=== PATIENT | female | born 1955 | race Caucasian/White ===

== ENCOUNTER 2018-05-21 12:38 | Inpatient (IN) | payer SELFPAY ==
[~2018-05-21] VITALS: Ht 165.1 cm; Wt 102.9 kg
[2018-05-21 13:41] LABS: Basophils # (auto) 0 uL; Eosinophils # (auto) 0.1 uL; Eosinophils % (auto) 1.7 % (0.0-7.0); Lymphocytes # (auto) 0.9 uL; Mean Corpuscular Volume 81.8 fL (80.0-100.0); Monocytes # (auto) 0.4 uL; Neutrophils % (auto) 78.9 % (37.0-80.0); Nucleated Red Blood Cells % 0.1 %
[2018-05-21 13:44] LABS: Basophils % (auto) 0.6 % (0.0-2.0); Hematocrit 37.6 % (36.0-46.0); Hemoglobin 11.8 g/dL (12.2-16.2); Lymphocytes % (auto) 12.6 % (10.0-50.0); Mean Corpuscular Hemoglobin 25.6 pg (28.0-32.0); Mean Corpuscular Hgb Conc. 31.3 g/dL (32.0-36.0); Monocytes % (auto) 6.2 % (0.0-12.0); Neutrophils # (auto) 5.4 uL; Platelet Count (auto) 321 10^3/uL (140-450); Red Cell Distribution Width 15.7 % (11.8-14.3); White Blood Cell 6.8 10^3/uL (4.4-10.8)
[2018-05-21 13:58] LABS: Albumin 3.1 g/dL (3.4-5.0); Anion Gap 6 (5-15); Blood Urea Nitrogen 9 mg/dL (7-18); Calcium 8.6 mg/dL (8.5-10.1); Carbon Dioxide 25 mmol/L (21-32); Chloride 109 mmol/L (98-107); Glucose 104 mg/dL (74-106); Magnesium 2.3 mg/dL (1.6-2.6); Potassium 3.3 mmol/L (3.5-5.1); Sodium 140 mmol/L (136-145)
[2018-05-21 14:05] LABS: Alanine Aminotransferase 25 U/L (13-56); Alkaline Phosphatase 126 U/L (45-117); Aspartate Aminotransferase 22 U/L (15-37); BUN/Creatinine Ratio 14.8; Bilirubin, Total 0.4 mg/dL (0.2-1.0); GFR African American 127 mL/min; GFR Non-African American 105 mL/min; Total Protein 6.8 g/dL (6.4-8.2)
[2018-05-21] MEDS ORDERED: NITROGLYCERIN 0.4 MG SL TAB SL PRN (15:30)
[2018-05-21] MEDS ORDERED: MORPHINE SULF INJ 2 MG/ML SYRINGE 1ML IV PRN (15:30)
[2018-05-21 16:11] LABS: INR 0.96 (0.9-1.15); Partial Thromboplastin Time 27.8 sec (23.78-33.04); Prothrombin Time 10.3 sec (9.27-12.13)
[2018-05-21] MEDS ORDERED: HYDROcodone-ACET 10/325MG TAB PO ONE (16:30)
[2018-05-21] MEDS: metroNIDAZOLE 500MG/100ML 100 ML IV SCH (17:11)
[2018-05-21] MEDS: MORPHINE SULF INJ 2 MG/ML SYRINGE 1ML IV PRN (17:12)
[2018-05-21] MEDS: ONDANSETRON HCL 4 MG/2 ML VIAL IV PRN ×2 (17:12→22:35)
[2018-05-21] MEDS: D5W/SOD CHL 0.45%/KCL 40MEQ 1,000 ML IV SCH ×2 (19:20→23:30)
[2018-05-21] MEDS ORDERED: GASTROGRAFIN 120 ML SOL ONE (19:59)
[2018-05-21 22:00] VITALS: BP 132/64
--- NOTE | 2018-05-21 22:13 | NUR ---
Telemetry admit from ER [facility] admitted to Telemetry unit after SBAR received. Patient oriented to OTTO ARZATE RN primary RN, unit, room, bed, and unit policies regarding patient care and visiting hours. Patient now on continuous telemetry monitoring, tele box # 23 and telemetry reading on arrival to unit is . Patient placed on bedside oxygen, weighed by bedscale and encouraged to call if they need something. All questions and concerns addressed, patient verbalized understanding. Note:
[2018-05-21] MEDS ORDERED: TRAM50TA2 PO (22:35)
[2018-05-22] MEDS: metroNIDAZOLE 500MG/100ML 100 ML IV SCH ×5 (00:09→23:27)
[2018-05-22] MEDS: MORPHINE SULF INJ 2 MG/ML SYRINGE 1ML IV PRN ×3 (01:34→13:27)
[2018-05-22] MEDS: ONDANSETRON HCL 4 MG/2 ML VIAL IV PRN (04:04)
[2018-05-22 05:00] VITALS: BP 126/74
[2018-05-22] MEDS: D5W/SOD CHL 0.45%/KCL 40MEQ 1,000 ML IV SCH ×4 (05:34→23:30)
[2018-05-22 06:41] LABS: Basophils # (auto) 0 uL; Basophils % (auto) 0.6 % (0.0-2.0); Lymphocytes # (auto) 1.1 uL; Monocytes # (auto) 0.7 uL; Red Cell Distribution Width 15.6 % (11.8-14.3)
[2018-05-22 06:45] LABS: Eosinophils # (auto) 0.2 uL; Eosinophils % (auto) 2.3 % (0.0-7.0); Hematocrit 33.1 % (36.0-46.0); Hemoglobin 10.7 g/dL (12.2-16.2); Mean Corpuscular Hemoglobin 25.9 pg (28.0-32.0); Mean Corpuscular Hgb Conc. 32.4 g/dL (32.0-36.0); Monocytes % (auto) 10.5 % (0.0-12.0); Neutrophils # (auto) 4.6 uL; Neutrophils % (auto) 69.6 % (37.0-80.0); Platelet Count (auto) 311 10^3/uL (140-450); Red Blood Cells 4.13 10^6/uL (4.0-5.20); White Blood Cell 6.7 10^3/uL (4.4-10.8)
[2018-05-22 07:00] LABS: Albumin 2.7 g/dL (3.4-5.0); Potassium 3.5 mmol/L (3.5-5.1)
[2018-05-22 07:04] LABS: Bilirubin, Total 0.4 mg/dL (0.2-1.0); Phosphorus 2.7 mg/dL (2.5-4.90)
[2018-05-22 09:00] VITALS: BP 124/57
--- NOTE | 2018-05-22 10:06 | NUR ---
URINE SAMPLE SENT TO LAB
[2018-05-22 10:25] LABS: Urine Bacteria NONE SEEN /hpf (None Seen); Urine Blood Negative /uL (Negative); Urine Mucus FEW (None Seen); Urine Specific Gravity 1.016 (1.001-1.035); Urine WBC 3 /hpf (0 - 5)
--- NOTE | 2018-05-22 11:34 | NUR ---
DR. CORTÉS AT BEDSIDE HE SAID TO FOLLOW UP SMALL BOWEL SERIES RESULT AND NOTIFY DR. LOPEZ ONCE RESULT IS BACK.
[2018-05-22] MEDS ORDERED: PANTOPRAZOLE 40 MG/10 ML VIAL IV ONE (11:45)
--- NOTE | 2018-05-22 11:56 | NUR ---
SMALL BOWEL SERIES RESULT CALLED RADIOLOGY, SPOKE TO RADHA, HE SAID HE WILL FOLLOW UP THE READING OF SMALL BOWEL SERIES.
--- NOTE | 2018-05-22 12:47 | NUR ---
Nutrition Assessment/consult Notes please see activated link for complete assessment Est. Needs based on AdBW (79 kg): 5437-0362 kcal (20-23 kcal/kgAdBW), 79-86 gms pro (1.0-1.1 gms/kgAdBW). Will continue to monitor pertinent labs and reassess nutrient need prn Addendum: 05/22/18 at [address] Amended: Links added.
[2018-05-22 13:00] VITALS: BP 121/69
--- NOTE | 2018-05-22 13:32 | NUR ---
CALLED RADIOLOGY, SECOND FOLLOW UP FOR SMALL BOWEL SERIES RESULT, SPOKE WITH MAIRA, SHE SAID SHE WILL FOLLOW UP THE RESULT.
--- NOTE | 2018-05-22 14:15 | NUR ---
PT SEEN BY DR. LOPEZ PER DR. LOPEZ NO INTERVENTION AT THIS TIME, PT CAN START WITH FULL LIQUID DIET.
--- NOTE | 2018-05-22 15:06 | NUR ---
SPOKE WITH DR. CORTSÉ MADE AWARE PT SEEN BY DR. LOPEZ AND NO INTERVENTION AT THIS TIME, AWARE OF THE PELVIC ULTRASOUND RESULT, HE ORDERED OBGYN CONSULT FOR UTERINE FIBROID. PER DR. CORTÉS HE WILL DISCHARGE THE PT TOMORROW.
--- NOTE | 2018-05-22 15:44 | NUR ---
DR. CORTÉS MADE AWARE PT IS REQUESTING MEDICATION FOR HEADACHE OTHER THAN MORPHINE. HE ORDERED NORCO 5/325 PO Q6HRS PRN. HE ORDERED TO STOP MORPHINE.
--- NOTE | 2018-05-22 16:07 | NUR ---
HAIR CONSULT PT SEEN BY DR. ALVAREZ, SHE SAID NO INTERVENTION AT THIS TIME, PT WILL FOLLOW UP OUT PATIENT.
--- NOTE | 2018-05-22 16:21 | NUR ---
assessment Per consult No PCP. Patient has no insurance. Patient to be assessed by Jenn norris [facility] for [facility]. Patient will then be assigned PCP. Addendum: 05/22/18 at 1622 by Gisel Cramer Amended: Links added.
[2018-05-22] MEDS: HYDROcodone-ACET 5/325MG TAB PO PRN (16:36)
[2018-05-22 16:43] VITALS: BP 135/72
--- NOTE | 2018-05-22 19:52 | NUR ---
PATIENT C/O 06/28 HEADACHE REQUESTING PAIN MEDICATION. INFORMED PATIENT HAS NORCO ORDERED Q 6HRS PRN. WILL CALL HOSPITALIST FOR TYLENOL PRN. HOSPITALIST PAGED AWAITING CALL BACK.
[2018-05-22 21:43] VITALS: BP 128/70
[2018-05-23 05:05] VITALS: BP 113/58
[2018-05-23] MEDS: HYDROcodone-ACET 5/325MG TAB PO PRN (05:23)
[2018-05-23] MEDS: metroNIDAZOLE 500MG/100ML 100 ML IV SCH ×2 (05:23→11:29)
[2018-05-23 08:10] VITALS: BP 122/55
[2018-05-23] MEDS: D5W/SOD CHL 0.45%/KCL 40MEQ 1,000 ML IV SCH (09:31)
[2018-05-23] MEDS ORDERED: PANTOPRAZOLE 40 MG/10 ML VIAL IV SCH (10:00)
--- NOTE | 2018-05-23 11:25 | NUR ---
PT SEEN BY DR. CORTÉS HE SAID PT CAN GO HOME , PT IS CLEARED BY DR. LOPEZ AND DR. ALVAREZ. HE SAID TO GIVE METRONIDAZOLE SCHEDULED AT 1200 AND DISCHARGE AFTER
[2018-05-23 12:31] VITALS: BP 148/103
[2018-05-23 13:13] VITALS: BP 122/55
--- NOTE | 2018-05-23 13:21 | NUR ---
PT STATED SHE WILL FOLLOW UP WITH HER PRIMARY DOCTOR IN [place].
--- NOTE | 2018-05-23 15:15 | NUR ---
Discharge instructions given as ordered. Encourage to follow up with her pcp DR. OCAMPO IN [place], INSTRUCTED TO FOLLOW UP WITH DOCTOR LOPEZ AND DR. ALVAREZ, TELEPHONE NUMBER AND ADDRESS PROVIDED TO THE PT. All questions and concerns addressed. Patient verbalized understanding. Medication reconciliation form completed and copy given to patient. IV removed with catheter intact, pressure dressing applied. Telemetry unit returned to ICU. Patient taken to vehicle via wheelchair with all personal belongings, accompanied by staff and family member. No distress noted at time of departure.
== END 2018-05-23 15:15 | disposition home or self-care (01) | DRG 394 ==
LOC: ER 12:50 → TELE 15:28 → TELE-WESTW 21:57
PROVIDERS: ADMIT Nurse Practitioner Acute Care; ATTEND Family Medicine
DX: K42.0 Umbilical hernia with obstruction, without gangrene (principal); E44.1 Mild protein-calorie malnutrition; Z98.84 Bariatric surgery status; D64.9 Anemia, unspecified; E87.6 Hypokalemia; Z68.37 Body mass index [BMI] 37.0-37.9, adult; E66.01 Morbid (severe) obesity due to excess calories; I10 Essential (primary) hypertension; I25.10 Atherosclerotic heart disease of native coronary artery without angina pectoris; Z90.49 Acquired absence of other specified parts of digestive tract; D25.9 Leiomyoma of uterus, unspecified; Z83.3 Family history of diabetes mellitus
CPT/HCPCS: 36415; 74176; 74250; 76856; 80053; 80061; 81001; 83036; 83690; 83735; 84100; 84443; 84484; 85025; 85610; 85730; 86850; 86900; 86901; 93306; 96374; A6257; C9113; G0378; J2405; J3490

== ENCOUNTER 2019-08-14 21:33 | Inpatient (IN) | payer MEDICARE ==
[~2019-08-14] VITALS: Ht 162.6 cm; Wt 94.5 kg
[~2019-08-14 21:33] MED LIST: TRAM50TA2 PO
[2019-08-14 23:36] LABS: Basophils # (auto) 0 10 ^3/uL (0-0.2); Basophils % (auto) 0.9 % (0.0-2.0); Eosinophils # (auto) 0 10 ^3/uL (0-0.8); Eosinophils % (auto) 0.8 % (0.0-7.0); Hematocrit 31.6 % (36.0-46.0); Hemoglobin 9.7 g/dL (12.2-16.2); Lymphocytes # (auto) 1.1 10 ^3/uL (0.4-5.4); Lymphocytes % (auto) 24.7 % (10.0-50.0); Mean Corpuscular Hemoglobin 22.5 pg (28.0-32.0); Mean Corpuscular Hgb Conc. 30.6 g/dL (32.0-36.0); Mean Corpuscular Volume 73.5 fL (80.0-100.0); Monocytes # (auto) 0.6 10 ^3/uL (0-1.3); Monocytes % (auto) 12.1 % (0.0-12.0); Neutrophils # (auto) 2.8 10 ^3/uL (1.6-8.6); Neutrophils % (auto) 61.5 % (37.0-80.0); Platelet Count (auto) 275 10^3/uL (140-450); Red Cell Distribution Width 17.7 % (11.8-14.3); White Blood Cell 4.6 10^3/uL (4.4-10.8)
[2019-08-14 23:59] LABS: Albumin 2.9 g/dL (3.4-5.0); BUN/Creatinine Ratio 18.3; Calcium 7.6 mg/dL (8.5-10.1); Magnesium 2.2 mg/dL (1.6-2.6); Potassium 3.5 mmol/L (3.5-5.1)
[2019-08-15 00:01] LABS: Bilirubin, Total 0.3 mg/dL (0.2-1.0); Total Protein 6.6 g/dL (6.4-8.2)
[2019-08-15] MEDS ORDERED: AZITHROMYCIN 500MG/ 250ML 250 ML IV ONE (01:45)
[2019-08-15] MEDS ORDERED: cefTRIAXone 1GM/50ML D5W 50 ML IV ONE (01:45)
[2019-08-15 09:00] LABS: Urine Bacteria NONE SEEN /hpf (None Seen); Urine Blood Negative /uL (Negative); Urine Specific Gravity 1.007 (1.001-1.035); Urine WBC <1 /hpf (0 - 5)
[2019-08-15] MEDS ORDERED: SODIUM CHLORIDE 0.9% 1,000 ML IV SCH (10:44)
[2019-08-15] MEDS ORDERED: MORPHINE SULF INJ 2 MG/ML SYRINGE 1ML IV PRN (10:45)
[2019-08-15] MEDS ORDERED: ACETAMINOPHEN 500 MG TAB PO PRN (10:45)
[2019-08-15] MEDS ORDERED: PROMETHAZINE HCL 25 MG/ML 1ML IV PRN (10:45)
[2019-08-15] MEDS ORDERED: NITROGLYCERIN 0.4 MG SL TAB SL PRN (10:45)
[2019-08-15] MEDS: ENOXAPARIN SOD 40 MG/0.4 ML SYRINGE SC SCH ×2 (11:52→22:56)
[2019-08-15] MEDS: traMADol HCL 50 MG TAB PO PRN ×2 (11:53→18:57)
[2019-08-15 13:00] VITALS: BP 128/94
[2019-08-15] MEDS: ALBUTEROL SULF HFA 90MCG INH 200DOSE IN SCH ×2 (14:29→22:55)
--- NOTE | 2019-08-15 14:30 | NUR ---
Respiratory note: PT IS AWAKE, AND ALERT. NO RESPIRATORY DISTRESS NOTED. SPO2 99% ON 2L NC, HR 74, RR 10, BS CLEAR/DIMINISHED BILATERALLY. 1 PUFF ALBUTEROL (90MCG) GIVEN VIA MDI WITH CHAMBER. NO ADVERSE EFFECTS NOTED. WILL CONTINUE TO MONITOR PT. CHARTING COMPLETE FROM OUTSIDE OF PT ROOM.
[2019-08-15 22:15] VITALS: BP 130/56
--- NOTE | 2019-08-15 22:15 | NUR ---
Telemetry admit from [facility] admitted to Telemetry unit. Patient oriented to ASHISH SON, RN primary RN, unit, room, bed, and unit policies regarding patient care and visiting hours. Patient now on continuous telemetry monitoring, tele box #7 and telemetry reading on arrival to unit is 62. Patient placed on bedside oxygen 2L via nasal cannula, weighed by bedscale and encouraged to call if they need something. All questions and concerns addressed, patient verbalized understanding.
[2019-08-15 22:20] VITALS: BP 130/56
--- NOTE | 2019-08-15 22:55 | NUR ---
Respiratory note: ALBUTEROL MDI ADMINISTERED BY RN.
[2019-08-16] MEDS ORDERED: ASPI-543 PO (04:02)
[2019-08-16 05:00] VITALS: BP 136/66
[2019-08-16 05:11] LABS: Basophils # (auto) 0 10 ^3/uL (0-0.2); Eosinophils # (auto) 0.1 10 ^3/uL (0-0.8); Hemoglobin 9.2 g/dL (12.2-16.2); Lymphocytes # (auto) 1.3 10 ^3/uL (0.4-5.4); Platelet Count (auto) 227 10^3/uL (140-450); White Blood Cell 2.7 10^3/uL (4.4-10.8)
[2019-08-16 05:13] LABS: Basophils % (auto) 0.6 % (0.0-2.0); Eosinophils % (auto) 2.4 % (0.0-7.0); Hematocrit 29.4 % (36.0-46.0); Lymphocytes % (auto) 50.1 % (10.0-50.0); Mean Corpuscular Hemoglobin 22.8 pg (28.0-32.0); Mean Corpuscular Hgb Conc. 31.2 g/dL (32.0-36.0); Monocytes # (auto) 0.4 10 ^3/uL (0-1.3); Monocytes % (auto) 13.2 % (0.0-12.0); Neutrophils # (auto) 0.9 10 ^3/uL (1.6-8.6); Neutrophils % (auto) 33.7 % (37.0-80.0); Nucleated Red Blood Cells % 0.3 %; Red Blood Cells 4.04 10^6/uL (4.0-5.20); Red Cell Distribution Width 17.2 % (11.8-14.3)
[2019-08-16 05:54] LABS: Albumin 2.5 g/dL (3.4-5.0); BUN/Creatinine Ratio 21.7; Calcium 7.6 mg/dL (8.5-10.1); Potassium 3.3 mmol/L (3.5-5.1)
[2019-08-16 05:56] LABS: Bilirubin, Total 0.2 mg/dL (0.2-1.0); Total Protein 5.8 g/dL (6.4-8.2)
[2019-08-16] MEDS: ALBUTEROL SULF HFA 90MCG INH 200DOSE IN SCH ×3 (06:44→21:01)
--- NOTE | 2019-08-16 06:44 | NUR ---
Respiratory note: PT RESTING COMFORTABLY. NO RESPIRATORY DISTRESS NOTED. SPO2 96% ON 1 L NC, HR 65, RR 16, BS CLEAR/DIMINISHED BILATERALLY. 1 PUFF ALBUTEROL (90MCG) GIVEN BY RN VIA MDI WITH CHAMBER, WITH NO ADVERSE EFFECTS NOTED. PT INFORMED TO PUSH CALL BUTTON IF INCREASED WOB, SOB, OR WHEEZING OCCURS. NO FURTHER RESPIRATORY INTERVENTIONS INDICATED. CHARTING COMPLETE FROM OUTSIDE OF PT ROOM.
[2019-08-16] MEDS: traMADol HCL 50 MG TAB PO PRN ×2 (06:59→18:39)
[2019-08-16 09:00] VITALS: BP 122/77
[2019-08-16] MEDS: cefTRIAXone 1GM/50ML D5W 50 ML IV SCH (09:45)
[2019-08-16] MEDS: ASCORBIC ACID 1,000 MG TAB PO SCH (09:47)
[2019-08-16] MEDS: AZITHROMYCIN 500MG/ 250ML 250 ML IV SCH (09:50)
[2019-08-16] MEDS: ENOXAPARIN SOD 40 MG/0.4 ML SYRINGE SC SCH (09:56)
[2019-08-16] MEDS: CHOLECALCIFEROL (VITD3) 1,000UNIT=25mCg TAB PO SCH (09:57)
[2019-08-16] MEDS ORDERED: PNEUMOCOCCAL VACC POLYS 25 MCG/0.5 ML VIAL IM ONE (10:00)
[2019-08-16 13:00] VITALS: BP 117/77
[2019-08-16] MEDS: ACETAMINOPHEN 500 MG TAB PO PRN (13:20)
[2019-08-16] MEDS: DexAMETHasone SOD PHOS 4 MG/1ML SDV INJ IV SCH ×2 (13:21→21:01)
--- NOTE | 2019-08-16 13:34 | NUR ---
Respiratory note: 1 PUFF ALBUTEROL (90MCG) GIVEN BY RN VIA MDI WITH CHAMBER, WITH NO ADVERSE EFFECTS NOTED. NO FURTHER RESPIRATORY INTERVENTIONS INDICATED. CHARTING COMPLETE FROM OUTSIDE OF PT ROOM.
[2019-08-16] MEDS ORDERED: FUROSEMIDE 20 MG/2 ML VIAL IV ONE (14:15)
[2019-08-16] MEDS ORDERED: POTASSIUM EFFERVESENT TAB 25 MEQ PO ONE (14:30)
--- NOTE | 2019-08-16 14:35 | NUR ---
Nutrition Consult/assessment Notes Please see attached link for complete assessment Est Energy needs ABW 73 [id number] kcals (20-23kcal/kgBW), Est Protein needs: 73-80 gms/day (1.0-1.0 gm/kgABW). Will continue to monitor and reassess prn. Addendum: 08/16/19 at [address] Amended: Links added.
[2019-08-16 17:00] VITALS: BP 127/75
--- NOTE | 2019-08-16 18:00 | NUR ---
PATIENT COMPLAINS OF CRAMPING IN LEG REQUESTED BANANA FROM DIETARY.
--- NOTE | 2019-08-16 18:58 | NUR ---
LEG CRAMP NO LONGER CRAMPING IN LEG RESTING IN BED.
--- NOTE | 2019-08-16 19:24 | NUR ---
Opening Shift Note Received report and assumed care of patient. Patient is awake and alert. No signs or symptoms of distress noted, patient currently denies pain. Instructed patient on plan of care and to call for assistance as needed. Will continue to monitor.
[2019-08-16 22:00] VITALS: BP 125/70
[2019-08-17 05:00] VITALS: BP 145/69
--- NOTE | 2019-08-17 05:30 | NUR ---
IV removal/insertion 20g IV to the Right forearm infiltrated. Discontinued IV clean technique, catheter tip fully intact. Pressure dressing applied to site. NOTE: Inserted 22g IV to the Left forearm. Patient tolerated well. Addendum: 08/18/19 at 0917 by ASHISH SON RN RN Correct date 08/18/19
[2019-08-17] MEDS: ALBUTEROL SULF HFA 90MCG INH 200DOSE IN SCH ×3 (06:23→22:23)
[2019-08-17] MEDS: ACETAMINOPHEN 500 MG TAB PO PRN (06:34)
--- NOTE | 2019-08-17 07:22 | NUR ---
Opening Shift Note Assumed care of patient, awake and alert. No S/S of distress/SOB or pain. Instructed on POC and to call for assist PRN, will continue to monitor for changes Q1hr and PRN.
[2019-08-17] MEDS: DexAMETHasone SOD PHOS 4 MG/1ML SDV INJ IV SCH (08:03)
[2019-08-17] MEDS: cefTRIAXone 1GM/50ML D5W 50 ML IV SCH (08:04)
[2019-08-17] MEDS: FUROSEMIDE 20 MG/2 ML VIAL IV SCH (08:04)
[2019-08-17] MEDS: ASCORBIC ACID 1,000 MG TAB PO SCH (08:05)
[2019-08-17] MEDS: POTASSIUM EFFERVESENT TAB 25 MEQ PO SCH (08:05)
[2019-08-17] MEDS: CHOLECALCIFEROL (VITD3) 1,000UNIT=25mCg TAB PO SCH (08:06)
[2019-08-17] MEDS: LORazepam 2MG/ML-1ML VIAL IV PRN (08:06)
[2019-08-17] MEDS: AZITHROMYCIN 500MG/ 250ML 250 ML IV SCH (08:06)
[2019-08-17 08:47] VITALS: BP 163/74
[2019-08-17] MEDS ORDERED: ENOXAPARIN SOD 40 MG/0.4 ML SYRINGE SC SCH (10:00)
[2019-08-17] MEDS ORDERED: LORazepam 2MG/ML-1ML VIAL IM ONE (10:45)
[2019-08-17] MEDS ORDERED: LORazepam 2MG/ML-1ML VIAL IV ONE (11:00)
[2019-08-17] MEDS ORDERED: ENOXAPARIN SOD 40 MG/0.4 ML SYRINGE SC ONE (12:15)
[2019-08-17 12:47] VITALS: BP 152/97
[2019-08-17] MEDS: traMADol HCL 50 MG TAB PO PRN ×2 (12:53→14:10)
--- NOTE | 2019-08-17 13:01 | NUR ---
Respiratory note: MDI GIVEN BY RN. PT TOLERATED WELL.
[2019-08-17 16:47] VITALS: BP 149/73
--- NOTE | 2019-08-17 19:36 | NUR ---
Opening Shift Note Received report and assumed care of patient. Patient is awake and alert. No signs or symptoms of distress noted. Instructed patient on plan of care and to call for assistance as needed. Will continue to monitor.
[2019-08-17] MEDS ORDERED: TEMAZEPAM 15 MG CAP PO PRN (21:00)
[2019-08-17] MEDS ORDERED: ENOXAPARIN SOD 100 MG/1 ML SYRINGE SC SCH (22:00)
[2019-08-18 05:00] VITALS: BP 147/86
[2019-08-18 05:42] LABS: Basophils # (auto) 0 10 ^3/uL (0-0.2); Basophils % (auto) 0.5 % (0.0-2.0); Eosinophils # (auto) 0 10 ^3/uL (0-0.8); Hemoglobin 9.8 g/dL (12.2-16.2); Lymphocytes # (auto) 1.3 10 ^3/uL (0.4-5.4); White Blood Cell 3.8 10^3/uL (4.4-10.8)
[2019-08-18 05:44] LABS: Eosinophils % (auto) 0.8 % (0.0-7.0); Hematocrit 31.4 % (36.0-46.0); Lymphocytes % (auto) 34.4 % (10.0-50.0); Mean Corpuscular Hemoglobin 22.5 pg (28.0-32.0); Mean Corpuscular Hgb Conc. 31.2 g/dL (32.0-36.0); Mean Corpuscular Volume 72.3 fL (80.0-100.0); Monocytes # (auto) 0.4 10 ^3/uL (0-1.3); Monocytes % (auto) 11.7 % (0.0-12.0); Neutrophils % (auto) 52.6 % (37.0-80.0); Nucleated Red Blood Cells % 0.2 %; Platelet Count (auto) 253 10^3/uL (140-450); Red Blood Cells 4.35 10^6/uL (4.0-5.20)
[2019-08-18 06:13] LABS: BUN/Creatinine Ratio 16.7; Calcium 8.6 mg/dL (8.5-10.1); Potassium 3.3 mmol/L (3.5-5.1)
[2019-08-18] MEDS: ALBUTEROL SULF HFA 90MCG INH 200DOSE IN SCH ×2 (06:48→14:52)
[2019-08-18] MEDS: ENOXAPARIN SOD 40 MG/0.4 ML SYRINGE SC SCH ×2 (06:49→10:03)
[2019-08-18] MEDS: ACETAMINOPHEN 500 MG TAB PO PRN (06:54)
[2019-08-18 08:47] VITALS: BP 152/76
[2019-08-18] MEDS: cefTRIAXone 1GM/50ML D5W 50 ML IV SCH (10:02)
[2019-08-18] MEDS: FUROSEMIDE 20 MG/2 ML VIAL IV SCH (10:02)
[2019-08-18] MEDS: POTASSIUM EFFERVESENT TAB 25 MEQ PO SCH (10:03)
[2019-08-18] MEDS: CHOLECALCIFEROL (VITD3) 1,000UNIT=25mCg TAB PO SCH (10:03)
[2019-08-18] MEDS: ASCORBIC ACID 1,000 MG TAB PO SCH (10:03)
[2019-08-18] MEDS: LORazepam 2MG/ML-1ML VIAL IV PRN (10:04)
[2019-08-18] MEDS: AZITHROMYCIN 500MG/ 250ML 250 ML IV SCH (11:42)
[2019-08-18 13:00] VITALS: BP 135/81
[2019-08-18 14:17] VITALS: BP 135/81
--- NOTE | 2019-08-18 15:53 | NUR ---
Discharge instructions given as ordered. Encourage to follow up with PMD as instructed. All questions and concerns addressed. Patient verbalized understanding. Medication reconciliation form completed and copy given to patient. IV removed with catheter intact, pressure dressing applied. Telemetry unit returned to ICU. Patient taken to vehicle via wheelchair with all personal belongings, accompanied by staff and Cornelius. No distress noted at time of departure.
== END 2019-08-18 14:00 | disposition home or self-care (01) | DRG 871 ==
LOC: ER 21:33 → TELE 21:34 → TELE-EAST 08-15 22:31
PROVIDERS: ADMIT Internal Medicine; ATTEND Internal Medicine Nephrology
DX: A41.89 Other specified sepsis (principal); J12.89 Other viral pneumonia; U07.1 COVID-19; E66.9 Obesity, unspecified; Z68.35 Body mass index [BMI] 35.0-35.9, adult; Z83.3 Family history of diabetes mellitus; I10 Essential (primary) hypertension; Z98.84 Bariatric surgery status
CPT/HCPCS: 36415; 71045; 74018; 80048; 80053; 81001; 82728; 83605; 83735; 85025; 85379; 87040; 87070; 87804; 87880; 93005; 94640; 96365; 96367; G0378; J0696; J1100

== ENCOUNTER 2022-05-31 09:54 | Emergency (ER) | payer MEDICARE, OTHER ==
[~2022-05-31] VITALS: Ht 165.1 cm; Wt 91.8 kg
[~2022-05-31 09:54] MED LIST changes: +ASPI-543 PO; -TRAM50TA2 PO
[2022-05-31 10:37] VITALS: BP 146/64
[2022-05-31] MEDS ORDERED: IBUP800T27 PO (11:14)
[2022-05-31] MEDS ORDERED: METH750T22 PO (11:14)
[2022-05-31 11:15] LABS: Urine Bacteria NONE SEEN /hpf (None Seen); Urine Blood Negative /uL (Negative); Urine Mucus FEW (None Seen); Urine WBC 2 /hpf (0 - 5)
[2022-05-31] MEDS ORDERED: HYDROcodone-ACET 5/325MG TAB PO ONE (11:15)
== END 2022-05-31 11:26 | disposition home or self-care (01) ==
LOC: ER 09:54
DX: S16.1XXA Strain of muscle, fascia and tendon at neck level, initial encounter (principal); M50.322 Other cervical disc degeneration at C5-C6 level; Z90.49 Acquired absence of other specified parts of digestive tract; X50.1XXA Overexertion from prolonged static or awkward postures, initial encounter; Y93.89 Activity, other specified; Y92.89 Other specified places as the place of occurrence of the external cause; Y99.8 Other external cause status
CPT/HCPCS: 72040; 81001